=== PATIENT | male | born 1970 | race Two or more races ===

== ENCOUNTER → 2023-05-01 | Outpatient (CLI) | payer MEDICAID ==
[2023-05-01 09:56] LABS: Urine WBC None Seen /hpf (0 - 3)
[2023-05-01 10:06] LABS: Basophils # (auto) 0.1 10 ^3/uL (0-0.2); Eosinophils # (auto) 0.2 10 ^3/uL (0-0.8); Hematocrit 43.1 % (41.0-53.0); Hemoglobin 14.8 g/dL (13.5-17.5); Lymphocytes # (auto) 1.8 10 ^3/uL (0.4-5.4); Lymphocytes % (auto) 33.4 % (10.0-50.0); Mean Corpuscular Hemoglobin 32.3 pg (28.0-32.0); Mean Corpuscular Hgb Conc. 34.4 g/dL (32.0-36.0); Monocytes # (auto) 0.6 10 ^3/uL (0-1.3); Monocytes % (auto) 11.4 % (0.0-12.0); Neutrophils # (auto) 2.8 10 ^3/uL (1.6-8.6); Neutrophils % (auto) 50.2 % (37.0-80.0); Red Blood Cells 4.58 10^6/uL (4.5-5.90); Red Cell Distribution Width 13.2 % (11.8-14.3); White Blood Cell 5.5 10^3/uL (4.4-10.8)
[2023-05-01 10:23] LABS: Urine Bacteria NONE SEEN /hpf (None Seen); Urine Blood Negative /uL (Negative); Urine Clarity Clear (Clear); Urine Color Yellow (Yellow); Urine Protein, UAD Negative (Negative); Urine Specific Gravity 1.019 (1.001-1.035); Urine Urobilinogen Normal (Negative)
[2023-05-01 10:30] LABS: Alanine Aminotransferase 14 U/L (7-40); Albumin 4.4 g/dL (3.2-4.8); Alkaline Phosphatase 119 U/L (46-116); Anion Gap 2 (5-15); Aspartate Aminotransferase 17 U/L (13-40); BUN/Creatinine Ratio 12.2 (10.0-20.0); Blood Urea Nitrogen 9 mg/dL (9-23); Calcium 9.2 mg/dL (8.5-10.1); Carbon Dioxide 31 mmol/L (20-30); Chloride 100 mmol/L (98-107); Glucose 85 mg/dL (74-106); LDL Cholesterol 47 mg/dL (< 100); Potassium 4.4 mmol/L (3.5-5.1); Sodium 133 mmol/L (136-145); Triglycerides 56 mg/dL (< 150)
[2023-05-01 10:31] LABS: Bilirubin, Total 0.5 mg/dL (0.2-1.0); Cholesterol 123 mg/dL (< 200); HDL Cholesterol 67 mg/dL (40-59)
[2023-05-01 10:32] LABS: Total Protein 6.9 g/dL (5.7-8.2)
== END | disposition home or self-care (01) ==
LOC: LAB 09:43
PROVIDERS: ATTEND Nurse Practitioner
DX: I10 Essential (primary) hypertension (principal); R73.9 Hyperglycemia, unspecified; E78.5 Hyperlipidemia, unspecified
CPT/HCPCS: 36415; 80053; 80061; 81001; 83036; 84443; 85025

== ENCOUNTER → 2023-10-20 | Outpatient (CLI) | payer MEDICAID ==
[2023-10-20 09:35] LABS: Creatinine, Urine 218.3 mg/dL (30.0-125.0)
[2023-10-20 09:44] LABS: Alanine Aminotransferase 17 U/L (7-40); Albumin 4.1 g/dL (3.2-4.8); Alkaline Phosphatase 126 U/L (46-116); Anion Gap 6 (5-15); Aspartate Aminotransferase 9 U/L (13-40); BUN/Creatinine Ratio 23.4 (10.0-20.0); Blood Urea Nitrogen 15 mg/dL (9-23); Calcium 9.2 mg/dL (8.7-10.4); Carbon Dioxide 29 mmol/L (20-30); Chloride 104 mmol/L (98-107); Potassium 3.6 mmol/L (3.5-5.1); Sodium 139 mmol/L (136-145)
[2023-10-20 09:45] LABS: Bilirubin, Total 0.4 mg/dL (0.2-1.0); Total Protein 6.3 g/dL (5.7-8.2)
[2023-10-20 09:54] LABS: Glucose 101 mg/dL (74-106)
== END | disposition home or self-care (01) ==
LOC: LAB 08:20
PROVIDERS: ATTEND Nurse Practitioner
DX: E78.5 Hyperlipidemia, unspecified (principal); E11.69 Type 2 diabetes mellitus with other specified complication
CPT/HCPCS: 36415; 80053; 82043; 82570; 83036

== ENCOUNTER 2024-01-18 09:42 | Emergency (ER) | payer MEDICAID ==
[~2024-01-18] VITALS: Ht 165.1 cm; Wt 63.2 kg
[2024-01-18 10:43] VITALS: BP 119/89; PULSE 74; RESP 17; TEMP 98.6; O2SAT 97
== END 2024-01-18 11:26 | disposition home or self-care (01) ==
LOC: ER 09:42
DX: F43.22 Adjustment disorder with anxiety (principal)

== ENCOUNTER → 2024-02-02 | Outpatient (CLI) | payer MEDICAID ==
[2024-02-02 11:31] LABS: Alanine Aminotransferase 13 U/L (7-40); Alkaline Phosphatase 129 U/L (46-116); Anion Gap 3 (5-15); BUN/Creatinine Ratio 13.6 (10.0-20.0); Blood Urea Nitrogen 11 mg/dL (9-23); Calcium 9.4 mg/dL (8.7-10.4); Carbon Dioxide 34 mmol/L (20-31); Chloride 101 mmol/L (98-107); Glucose 85 mg/dL (74-106); LDL Cholesterol 56 mg/dL (< 100); Potassium 3.9 mmol/L (3.5-5.1); Sodium 138 mmol/L (136-145); Triglycerides 66 mg/dL (< 150)
[2024-02-02 11:32] LABS: Albumin 4.3 g/dL (3.2-4.8); Aspartate Aminotransferase 9 U/L (13-40); Bilirubin, Total 0.6 mg/dL (0.2-1.0); Cholesterol 137 mg/dL (< 200); HDL Cholesterol 68 mg/dL (40-59); Total Protein 7.1 g/dL (5.7-8.2)
== END | disposition home or self-care (01) ==
LOC: LAB 10:10
PROVIDERS: ATTEND Nurse Practitioner
DX: E11.9 Type 2 diabetes mellitus without complications (principal); E78.5 Hyperlipidemia, unspecified
CPT/HCPCS: 36415; 80053; 80061; 83036

== ENCOUNTER 2024-02-15 20:01 | Emergency (ER) | payer MEDICAID ==
[~2024-02-15] VITALS: Ht 170.2 cm; Wt 63.6 kg
[2024-02-15] MEDS ORDERED: ACET500T58 PO (22:16)
[2024-02-15] MEDS ORDERED: CEPH500C PO (22:16)
--- NOTE | 2024-02-15 22:18 | ED.PDOC ---
HPI Comments 53-year-old male presents to ER with complaints of laceration to right 5th finger x1 day. Patient is present with his [id number], reporting that he tripped and fell in a bedroom today at approximately 1:00 p.m. and used his right hand to catch himself catch himself falling and states that his right hand made impact with a sharp knife that was hanging on the wall and sustained laceration to right 5th finger at that time. Denies head injury/LOC. He denies any current pain. Reports he is able to fully move all fingers right hand. Denies numbness/tingling or any further symptoms/complaints Chief Complaint: Laceration Time Seen by MD: 20:05 Primary Care Provider: UNKNOWN Reviewed Notes: Nurses Notes, Medications, Allergies Allergies: Coded Allergies: NO KNOWN ALLERGIES (Unverified , 01/18/24) Home Meds Active Scripts Cephalexin Monohydrate (Cephalexin) 500 Mg Cap, 1 CAP PO BID for 7 Days, #14 CAP 0 Refills Prov:VLADIMIR BILLS 02/15/24 Acetaminophen (Acetaminophen) 500 Mg Tab, 500 MG PO Q4HPRN, #30 TAB 0 Refills Prov:VLADIMIR BILLS 02/15/24 Information Source: Patient Mode of Arrival: Ambulatory Complexity: Simple Last Tetanus: UTD Laceration Length (cm): 2 Past Medical History PAST MEDICAL HISTORY: Schizophrenia Past Medical History (Other): MENTAL DELAY BIPOLAR Surgical History: Denies all surgeries Family History Family History: Unknown Social History Smoker: Non-Smoker Alcohol: Denies ETOH Use Drugs: Denies Drug Use Lives In: Home Constitutional: denies: chills, diaphoresis, fatigue, fever, malaise, sweats, weakness, others EENTM: denies: blurred vision, double vision, ear bleeding, ear discharge, ear drainage, ear pain, ear ringing, eye pain, eye redness, hearing loss, mouth pain, mouth swelling, nasal discharge, nose bleeding, nose congestion, nose pain, photophobia, tearing, throat pain, throat swelling, voice changes, others Respiratory: denies: cough, hemoptysis, orthopnea, SOB at rest, shortness of breath, SOB with excertion, stridor, wheezing, others Cardiovascular: denies: chest pain, dizzy spells, diaphoresis, Dyspnea on exertion, edema, irregular heart beat, left arm pain, lightheadedness, palpitations, PND, syncope, others Gastrointestinal: denies: abdomen distended, abdominal pain, blood streaked bowels, constipated, diarrhea, dysphagia, difficulty swallowing, hematemesis, melena, nausea, poor appetite, poor fluid intake, rectal bleeding, rectal pain, vomiting, others Genitourinary: denies: burning, dysuria, flank pain, frequency, hematuria, incontinence, penile discharge, penile sore, pain, testicle pain, testicle swelling, urgency, others Neurological: denies: dizziness, fainting, headache, left sided numbness, left sided weakness, numbness, paresthesia, pre-existing deficit, right sided num bness, right sided weakness, seizure, speech problems, tingling, tremors, weakness, others Musculoskeletal: denies: back pain, gout, joint pain, joint swelling, muscle pain, muscle stiffness, neck pain, others Integumetry: reports: others (As stated in HPI) Allergic/Immunocompromised: denies: Difficulty Healing, Frequent Infections, Hives, Itching, others Hematologic/Lymphatic: denies: anemia, blood clots, easy bleeding, easy bruising, swollen glands, others Endocrine: denies: excessive hunger, excessive sweating, excessive thirst, excessive urination, flushing, intolerance to cold, intolerance to heat, unexplained weight gain, unexplained weight loss, others Psychiatric: denies: anxiety, bipolar disorder, depression, hopeless, panic disorder, schizophrenia, sleepless, suicidal, others Physical Exam General Appearance: No Apparent Distress HEENT: PERRL/EOMI Neck: Full Range of Motion, Non-Tender, Normal Respiratory: Chest Non-Tender, Lungs Clear, No Accessory Muscle Use, No Respiratory Distress, Normal Breath Sounds Cardiovascular: No Murmur, No Gallop, Regular Rate/Rhythm Breast Exam: Deferred Gastrointestinal: NOT DONE Genitalia: Deferred Pelvic: Deferred Rectal: Deferred Extremities: Normal capillary refill, Normal range of motion Neurologic: Alert, No Motor Deficits, Normal Affect, Normal Mood, No Sensory Deficits Cerebellar Function: Normal Reflexes: Normal Skin: Dry, Warm, Other (2 cm laceration with 1 cm partial skin avulsion noted to right 5th finger. Slight TTP/swelling/erythema localized to wound edges. No nailbed injury/further skin changes noted. Patient able to fully move all fingers right hand. Pulses intact) Peripheral Pulses: 2+ Radial (R), 2+ Radial (L), 2+ Brachial (R), 2+ Brachial (L) Lymphatic: No Adenopathy Was a procedure done? Was a procedure done?: Yes Sedation Sedation?: No Laceration Repair : Location Right 5th finger Length 2cm Anesthetic: Lidocaine (1%), Without epi Laceration Repair Prep: Saline (And peroxide), by Irrigation (Without any signs of foreign body) Laceration Repair Wound Comple: epidermis/dermis repair Laceration Repair: Number of sutures (2 placed without complication), Size (5-0), Nylon, Simple, Non-adherent gauze (Finger splint also applied to prevent wound dehiscence) Informed consent obtained: Yes Risks, benefits, and alternati: Yes Differential diagnosis Generic Laceration: Fracture, Retained Foriegn Body, Neurovascular Injury X-Ray, Labs, Meds, VS Vital Signs Date Time Temp Pulse Resp B/P (MAP) Pulse Ox O2 Delivery O2 Flow Rate FiO2 02/15/24 20:32 98.9 94 15 116/79 (91) 98 Patient neurovascularly intact Wound care/cleaning discussed and advised Advised on rest/no strenuous activity and elevation Advised to follow up in two days for wound check Advised to follow up with PCP in 1-2 days Patient and patients brother in law and verbalized understanding and agreeable with current plan of care Advised to return to ER immediately if symptoms worsen Time of 1ST Reevaluation: 21:50 Reevaluation 1ST: N/A Patient Education/Counseling: Diagnosis, Treatment, Prognosis, Need For Follow Up Family Education/Counseling: Diagnosis, Treatment, Prognosis, Need For Follow Up Departure 1 Departure Time of Disposition: 22:12 Impression: Primary Impression: Laceration of finger of right hand Qualified Codes: S61.216A - Laceration without foreign body of right little finger without damage to nail, initial encounter Disposition: HOME / SELF CARE / HOMELESS Condition: Stable e-Prescriptions Cephalexin Monohydrate (Cephalexin) 500 Mg Cap 1 CAP PO BID for 7 Days, #14 CAP 0 Refills Prov: VLADIMIR BILLS 02/15/24 Acetaminophen (Acetaminophen) 500 Mg Tab 500 MG PO Q4HPRN, #30 TAB 0 Refills Prov: VLADIMIR BILLS 02/15/24 Discharged With: Other ([id number]) Critical Care Note Critical Care Time?: No Stability Stability form required: No Heart Score Heart Score: Heart Score Response (Comments) Value History N/A 0 EKG N/A 0 Age N/A 0 Risk Factors N/A 0 Troponin N/A 0 Total 0 VLADIMIR BILLS Feb 15, 2024 22:17
[2024-02-15 22:53] VITALS: BP 120/84; PULSE 90; RESP 18; TEMP 98.9; O2SAT 98
== END 2024-02-15 23:03 | disposition home or self-care (01) ==
LOC: ER 20:01
DX: S61.216A Laceration without foreign body of right little finger without damage to nail, initial encounter (principal); F20.9 Schizophrenia, unspecified; Z79.899 Other long term (current) drug therapy; W01.0XXA Fall on same level from slipping, tripping and stumbling without subsequent striking against object, initial encounter; Y93.89 Activity, other specified; Y92.89 Other specified places as the place of occurrence of the external cause; Y99.8 Other external cause status
CPT/HCPCS: 12001

== ENCOUNTER 2024-07-17 17:52 | Emergency (ER) | payer OTHER, MEDICAID ==
[~2024-07-17] VITALS: Ht 170.2 cm; Wt 65.0 kg
[~2024-07-17 17:52] MED LIST: ACET500T58 PO; CEPH500C PO
[2024-07-17 18:47] LABS: Basophils # (auto) 0.1 10 ^3/uL (0-0.2); Basophils % (auto) 1.9 % (0.0-2.0); Eosinophils # (auto) 0.1 10 ^3/uL (0-0.8); Hematocrit 45.6 % (41.0-53.0); Hemoglobin 15.8 g/dL (13.5-17.5); Lymphocytes # (auto) 1.5 10 ^3/uL (0.4-5.4); Lymphocytes % (auto) 24.7 % (10.0-50.0); Mean Corpuscular Hemoglobin 32.2 pg (28.0-32.0); Mean Corpuscular Hgb Conc. 34.7 g/dL (32.0-36.0); Mean Corpuscular Volume 92.9 fL (80.0-100.0); Monocytes # (auto) 0.8 10 ^3/uL (0-1.3); Monocytes % (auto) 12.1 % (0.0-12.0); Neutrophils # (auto) 3.8 10 ^3/uL (1.6-8.6); Neutrophils % (auto) 60.3 % (37.0-80.0); Nucleated Red Blood Cells % 0.1 %; Platelet Count (auto) 403 10^3/uL (140-450); Red Blood Cells 4.91 10^6/uL (4.5-5.90); Red Cell Distribution Width 12.9 % (11.8-14.3); White Blood Cell 6.2 10^3/uL (4.4-10.8)
--- NOTE | 2024-07-17 18:53 | ED.PDOC ---
History of Present Illness HPI Comments 53 y/o M, with a history of asthma, bipolar disorder, schizophrenia, mental delay, and DM, presents with sister and [id number] for wellness-check. Per sister, who is the patient's primary intelligence specialist, patient has been having frequent, persisting behavioral issues, lately, characterized by physical aggression, such as head-banging, and irregular sleep patterns. Patient's psychiatrist has been contacted multiple times, with patient's medication list changing in attempt to manage behavior for several months to minimal affect and was brought to ED, due to family admitting on not knowing what else to do. Patient, upon inquiry, complains of generalized body pain keeping him up for the past 2 days. Denies any suicidal or homicidal ideation or other associated symptoms along with any recent substance use. Chief Complaint: Body Pain Time Seen by MD: 18:20 Primary Care Provider: UNKNOWN Reviewed Notes: Nurses Notes, Medications, Allergies Allergies: Coded Allergies: NO KNOWN ALLERGIES (Unverified , 01/18/24) Home Meds Active Scripts Cephalexin Monohydrate (Cephalexin) 500 Mg Cap, 1 CAP PO BID for 7 Days, #14 CAP 0 Refills Prov:VLADIMIR BILLS 02/15/24 Acetaminophen (Acetaminophen) 500 Mg Tab, 500 MG PO Q4HPRN, #30 TAB 0 Refills Prov:VLADIMIR BILLS 02/15/24 Information Source: Patient, Relative Mode of Arrival: Ambulatory Severity: Moderate Past Medical History PAST MEDICAL HISTORY: Asthma, DM, Schizophrenia Past Medical History (Other): bipolar disorder mental delay Surgical History: Denies all surgeries Family History Family History: Unknown Social History Smoker: Non-Smoker Alcohol: Denies ETOH Use Drugs: Denies Drug Use Lives In: Home, Assisted Care All Other Systems: Reviewed and Negative (as per HPI) Physical Exam General Appearance: No Apparent Distress, Normal, Other (poor insight; mentally delayed ) HEENT: Normal ENT Inspection, Pharynx Normal, TMs Normal Neck: Full Range of Motion, Non-Tender, Normal, Normal Inspection Respiratory: Chest Non-Tender, Lungs Clear, No Accessory Muscle Use, No Respiratory Distress, Normal Breath Sounds Cardiovascular: No Edema, No JVD, No Murmur, No Gallop, Normal Peripheral Puls es, Regular Rate/Rhythm Breast Exam: Deferred Gastrointestinal: No Organomegaly, Non Tender, No Pulsatile Mass, Normal Bowel Sounds, Soft Genitalia: Deferred Pelvic: Deferred Rectal: Deferred Extremities: No calf tenderness, Normal capillary refill, Normal inspection, Normal range of motion, Non-tender, No pedal edema Musculoskeletal : Apperance: Normal Neurologic: Alert, cordage sales representative II-XII nml as Tested, No Motor Deficits, Normal Affect, Normal Mood, No Sensory Deficits Cerebellar Function: Normal Reflexes: Normal Skin: Dry, Normal Color, Warm Lymphatic: No Adenopathy Was a procedure done? Was a procedure done?: No Differential Dx Considerations may include: schizoaffective disorder, bipolar disorder, depression, anxiety, among others X-Ray, Labs, Meds, VS Vital Signs Date Time Temp Pulse Resp B/P (MAP) Pulse Ox O2 Delivery O2 Flow Rate FiO2 07/17/24 18:09 98.1 114 16 120/80 (93) 96 98.1 Lab Test 07/17/24 18:42 07/17/24 18:35 Range/Units Urine Opiates Screen Neg NEGATIVE Urine Fentanyl Screen Neg NEGATIVE Urine Barbiturates Screen Neg NEGATIVE Urine Phencyclidine Screen Neg NEGATIVE Urine Amphetamines Screen Neg NEGATIVE Urine Benzodiazepines Screen Neg NEGATIVE Urine Cocaine Screen Neg NEGATIVE Urine Cannabinoids Screen Neg NEGATIVE White Blood Count 6.2 4.4-10.8 10^3/uL Red Blood Count 4.91 4.5-5.90 10^6/uL Hemoglobin 15.8 13.5-17.5 g/dL Hematocrit 45.6 41.0-53.0 % Mean Corpuscular Volume 92.9 80.0-100.0 fL Mean Corpuscular Hemoglobin 32.2 H 28.0-32.0 pg Mean Corpuscular Hemoglobin Concent 34.7 32.0-36.0 g/dL Red Cell Distribution Width 12.9 11.8-14.3 % Platelet Count 403 140-450 10^3/uL Mean Platelet Volume 6.5 L 6.9-10.8 fL Neutrophils (%) (Auto) 60.3 37.0-80.0 % Lymphocytes (%) (Auto) 24.7 10.0-50.0 % Monocytes (%) (Auto) 12.1 H 0.0-12.0 % Eosinophils (%) (Auto) 1.0 0.0-7.0 % Basophils (%) (Auto) 1.9 0.0-2.0 % Neutrophils # (Auto) 3.8 1.6-8.6 10 ^3/uL Lymphocytes # (Auto) 1.5 0.4-5.4 10 ^3/uL Monocytes # (Auto) 0.8 0-1.3 10 ^3/uL Eosinophils # (Auto) 0.1 0-0.8 10 ^3/uL Basophils # (Auto) 0.1 0-0.2 10 ^3/uL Nucleated Red Blood Cells 0.1 % Sodium Level 137 136-145 mmol/L Potassium Level 3.8 3.5-5.1 mmol/L Chloride Level 101 98-107 mmol/L Carbon Dioxide Level 27 20-31 mmol/L Anion Gap 9 5-15 Blood Urea Nitrogen 13 9-23 mg/dL Creatinine 0.78 0.700-1.30 mg/dL Glomerular Filtration Rate Calc 107 >90 mL/min BUN/Creatinine Ratio 16.7 10.0-20.0 Serum Glucose 245 H 74-106 mg/dL Calcium Level 9.6 8.7-10.4 mg/dL Total Bilirubin 0.4 0.2-1.0 mg/dL Aspartate Amino Transferase (AST) 29 13-40 U/L Alanine Aminotransferase (ALT) 26 7-40 U/L Alkaline Phosphatase 174 H 46-116 U/L Total Protein 7.4 5.7-8.2 g/dL Albumin 4.6 3.2-4.8 g/dL Salicylates Level < 3.0 -30 mg/dL Acetaminophen Level < 2.0 L 10.0-20.0 UG/ML Plasma/Serum Blood Alcohol < 3.0 <10 mg/dL Time of 1ST Reevaluation: 18:50 Reevaluation 1ST: Unchanged Time of 2ND Reevaluation: 19:21 Reevaluation 2ND: Unchanged Consultation: Psychiatry (LAB RESULTS REVIEWED, HYPERGLYCEMIA 245 NOTED, PATIENT IS MEDICALLY CLEARED AT THIS TIME) Patient Education/Counseling: Diagnosis, Treatment, Other (patient is mentally delayed ) Family Education/Counseling: Diagnosis, Treatment Departure 1 Departure Time of Disposition: 22:23 Impression: Primary Impression: Adjustment disorder Additional Impressions: Type 2 diabetes mellitus with hyperglycemia Insomnia Disposition: PSYCHIATRIC HOSPITAL Condition: Stable Comments Psychiatry evaluated the patient and recommends transfer for inpatient psychiatric care. Critical Care Note Critical Care Time?: No Stability Stability form required: No Heart Score Heart Score: Heart Score Response (Comments) Value History N/A 0 EKG N/A 0 Age N/A 0 Risk Factors N/A 0 Troponin N/A 0 Total 0 I personally scribed for AMY YO MD ([email or web address]) on 07/17/24 at 18:53. Electronically submitted by Waqas Garza [email or web address]). AMY YO MD Jul 17, 2024 18:53
[2024-07-17 19:03] LABS: Amphetamine Screen, Urine Neg (NEGATIVE); Barbiturate Scree,Urine Neg (NEGATIVE); Benzodiazephine Screen, Urine Neg (NEGATIVE); Cannabinoid Screen, Urine Neg (NEGATIVE); Cocaine Screen, Urine Neg (NEGATIVE); Opiate Scree,Urine Neg (NEGATIVE); Phencyclidine Screen, Urine Neg (NEGATIVE)
[2024-07-17 19:05] LABS: Alanine Aminotransferase 26 U/L (7-40); Albumin 4.6 g/dL (3.2-4.8); Anion Gap 9 (5-15); Aspartate Aminotransferase 29 U/L (13-40); BUN/Creatinine Ratio 16.7 (10.0-20.0); Blood Urea Nitrogen 13 mg/dL (9-23); Calcium 9.6 mg/dL (8.7-10.4); Carbon Dioxide 27 mmol/L (20-31); Chloride 101 mmol/L (98-107); Potassium 3.8 mmol/L (3.5-5.1); Sodium 137 mmol/L (136-145); Total Protein 7.4 g/dL (5.7-8.2)
[2024-07-17 19:06] LABS: Bilirubin, Total 0.4 mg/dL (0.2-1.0)
[2024-07-17 19:09] LABS: Acetaminophen < 2.0 UG/ML (10.0-20.0); Alkaline Phosphatase 174 U/L (46-116); Blood Alcohol < 3.0 mg/dL (<10); Glucose 245 mg/dL (74-106); Salicylate < 3.0 mg/dL (-30)
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
[2024-07-17] MEDS: diphenhdrAMINE HCL 50 MG/1 ML VL IM ONE (23:12)
[2024-07-17] MEDS: HALOPERIDOL LACTATE 5 MG/ML INJ VIAL IM ONE (23:12)
[2024-07-17] MEDS: LORazepam 2MG/ML-1ML VIAL IM ONE (23:13)
[2024-07-18 00:38] VITALS: PULSE 86; RESP 18; O2SAT 97
[2024-07-18] MEDS: OLANZapine 5 MG TAB PO ONE (03:10)
[2024-07-18] MEDS: traZODone HCL 50 MG TAB PO ONE (03:10)
[2024-07-18] MEDS: diphenhdrAMINE HCL 50 MG/1 ML VL IM ONE ×2 (08:25→17:25)
[2024-07-18] MEDS: HALOPERIDOL LACTATE 5 MG/ML INJ VIAL IM ONE ×2 (08:25→17:25)
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
[2024-07-18] MEDS: LORazepam 2MG/ML-1ML VIAL IV ONE ×2 (12:30→18:30)
[2024-07-18] MEDS: LORazepam 0.5 MG TAB PO PRN (16:50)
[2024-07-18] MEDS: ACETAMINOPHEN 325 MG TAB PO ONE (16:56)
[2024-07-18] MEDS: LORazepam 0.5 MG TAB ONE (16:56)
[2024-07-18] MEDS: LORazepam 2MG/ML-1ML VIAL IM ONE (17:24)
[2024-07-18 23:40] VITALS: RESP 18
[2024-07-19] MEDS: OLANZapine 5 MG TAB PO SCH (00:36)
[2024-07-19] MEDS: MIDAZOLAM HCL 5 MG/ML-1ML VIAL IM ONE (00:46)
[2024-07-19] MEDS: HALOPERIDOL LACTATE 5 MG/ML INJ VIAL IM ONE (02:58)
[2024-07-19] MEDS: MORPHINE SULFATE 4 MG/ML SYR/VIAL IM ONE (05:26)
[2024-07-19 15:15] VITALS: BP 148/83; PULSE 100; RESP 18; TEMP 97.8; O2SAT 98
[2024-07-19] MEDS: InsuLIN REG 1unit/0.01ml Soln (100units/ml) ONE (15:47)
[2024-07-19] MEDS: InsuLIN REG 1unit/0.01ml Soln (100units/ml) SC ONE (15:48)
== END 2024-07-19 15:46 | disposition short-term general hospital (02) ==
LOC: ER 17:55
DX: F43.20 Adjustment disorder, unspecified (principal); E11.65 Type 2 diabetes mellitus with hyperglycemia; G47.00 Insomnia, unspecified; F20.9 Schizophrenia, unspecified; F31.9 Bipolar disorder, unspecified; F63.9 Impulse disorder, unspecified; J45.909 Unspecified asthma, uncomplicated
CPT/HCPCS: 36415; 80053; 80307; 80320; 80329; 82947; 85025; 96372; 99285; J1200; J1630; J1815; J2060; J2250; J2270; 82962

== ENCOUNTER 2024-07-26 01:42 | Emergency (ER) | payer OTHER, MEDICAID ==
[~2024-07-26] VITALS: Ht 167.6 cm; Wt 72.7 kg
--- NOTE | 2024-07-26 02:14 | ED.PDOC ---
History of Present Illness HPI Comments 53-year-old male BIBA for being a danger to others and in 4-point restraints. EMS states that family called for patient getting violent at home. Patient was just seen at this facility on 07/17-07/19/24 and discharged from [facility] yesterday. Patient was on 5150 hold due to being DTO. Patient on arrival to ED is denying SI/HI, but says "I wasn't ready to go home and that's why I got like that with my family". PMHx Bipolar, Schizoaffective, DM. Chief Complaint: Mental Health Time Seen by MD: 02:07 Primary Care Provider: UNKNOWN Reviewed Notes: Medications, Allergies Allergies: Coded Allergies: NO KNOWN ALLERGIES (Unverified , 01/18/24) Home Meds Active Scripts Cephalexin Monohydrate (Cephalexin) 500 Mg Cap, 1 CAP PO BID for 7 Days, #14 CAP 0 Refills Prov:VLADIMIR BILLS 02/15/24 Acetaminophen (Acetaminophen) 500 Mg Tab, 500 MG PO Q4HPRN, #30 TAB 0 Refills Prov:VLADIMIR BILLS 02/15/24 Information Source: Patient, Emergency Med Personnel Mode of Arrival: EMS Severity: Moderate Timing: Hours Duration: Since onset Prehospital treatment: [employer], Restraints Vital Signs Vital Signs Date Time Temp Pulse Resp B/P (MAP) Pulse Ox O2 Delivery O2 Flow Rate FiO2 07/26/24 08:00 97.5 94 15 112/78 (89) 98 97.5 07/26/24 03:41 Room Air* 0 21 Physical Exam General: Awake, alert and oriented. No acute distress. Skin: Skin in warm, dry and intact without rashes or lesions. HEENT: The head is normocephalic and atraumatic. Conjunctivae are clear without exudates or hemorrhage. Sclera is non-icteric. Neck: Normal range of motion. No JVD. Cardiac: Regular rate Respiratory: No signs of respiratory distress. No Stridor. Extremities: Upper and lower extremities are atraumatic in appearance without deformity. Neurological: The patient is awake, alert and oriented to person, place, and time with normal speech. Speech is clear. There is no facial asymmetry. Psychiatric: Patient appears irritable, making rude statement to [facility]era staff and passersby, threatening violence to staff Review of Systems: As stated in HPI Past Medical History PAST MEDICAL HISTORY: Asthma, DM, Schizophrenia Surgical History: Denies all surgeries Family History Family History: Unknown Social History Smoker: Non-Smoker Alcohol: Denies ETOH Use Drugs: Denies Drug Use Lives In: Home, Assisted Care Was a procedure done? Was a procedure done?: No Differential Dx Considerations may include: Substance intoxication, substance abuse, psychiatric disorder, homicidal ideation, suicidal ideation, other X-Ray, Labs, Meds, VS Vital Signs Date Time Temp Pulse Resp B/P (MAP) Pulse Ox O2 Delivery O2 Flow Rate FiO2 07/26/24 08:00 97.5 94 15 112/78 (89) 98 97.5 07/26/24 05:57 97.8 82 17 141/80 (100) 98 97.8 07/26/24 03:41 18 Room Air* 0 21 07/26/24 01:48 98.4 99 20 121/83 (96) 97 98.4 Lab Test 07/26/24 05:53 07/26/24 02:18 Range/Units Hepatitis A IgM Antibody Pending Hepatitis B Surface Antigen Pending Hepatitis B Core IgM Antibody Pending Hepatitis C Antibody Pending White Blood Count 9.9 4.4-10.8 10^3/uL Red Blood Count 4.33 L 4.5-5.90 10^6/uL Hemoglobin 14.1 13.5-17.5 g/dL Hematocrit 41.4 41.0-53.0 % Mean Corpuscular Volume 95.7 80.0-100.0 fL Mean Corpuscular Hemoglobin 32.6 H 28.0-32.0 pg Mean Corpuscular Hemoglobin Concent 34.1 32.0-36.0 g/dL Red Cell Distribution Width 12.4 11.8-14.3 % Platelet Count 360 140-450 10^3/uL Mean Platelet Volume 6.4 L 6.9-10.8 fL Neutrophils (%) (Auto) 78.6 37.0-80.0 % Lymphocytes (%) (Auto) 9.2 L 10.0-50.0 % Monocytes (%) (Auto) 11.5 0.0-12.0 % Eosinophils (%) (Auto) 0.2 0.0-7.0 % Basophils (%) (Auto) 0.5 0.0-2.0 % Neutrophils # (Auto) 7.8 1.6-8.6 10 ^3/uL Lymphocytes # (Auto) 0.9 0.4-5.4 10 ^3/uL Monocytes # (Auto) 1.1 0-1.3 10 ^3/uL Eosinophils # (Auto) 0 0-0.8 10 ^3/uL Basophils # (Auto) 0 0-0.2 10 ^3/uL Nucleated Red Blood Cells 0.0 % Sodium Level 137 136-145 mmol/L Potassium Level 4.2 3.5-5.1 mmol/L Chloride Level 102 98-107 mmol/L Carbon Dioxide Level 27 20-31 mmol/L Anion Gap 8 5-15 Blood Urea Nitrogen 6 L 9-23 mg/dL Creatinine 0.68 L 0.700-1.30 mg/dL Glomerular Filtration Rate Calc 111 >90 mL/min BUN/Creatinine Ratio 8.8 L 10.0-20.0 Serum Glucose 190 H 74-106 mg/dL Calcium Level 9.6 8.7-10.4 mg/dL Total Bilirubin 0.4 0.2-1.0 mg/dL Aspartate Amino Transferase (AST) 53 H 13-40 U/L Alanine Aminotransferase (ALT) 49 H 7-40 U/L Alkaline Phosphatase 136 H 46-116 U/L Total Protein 6.6 5.7-8.2 g/dL Albumin 4.0 3.2-4.8 g/dL Plasma/Serum Blood Alcohol < 3.0 <10 mg/dL Current Medications Medications (Trade) Dose Ordered Sig/Vinny Route Start Time Stop Time Status Last Admin Lorazepam (Ativan Inj) 2 mg ONCE ONCE IM 07/26/24 02:00 07/26/24 02:01 DC 07/26/24 03:36 Time of 1ST Reevaluation: 02:37 Reevaluation 1ST: Unchanged Patient Education/Counseling: Need For Follow Up Family Education/Counseling: No Family Present Departure 1 Departure Time of Disposition: 15:30 Impression: Primary Impression: At risk for danger to others Additional Impressions: Elevated LFTs Bipolar disorder Disposition: 02 SHORT TERM HOSPITAL Condition: Stable Comments Discussed with Dr. Hamm psychiatry (@5:49). Recommendation is continue 5150 , inpatient admission to Behavioral Health unit. Continue home medication Patient was transferred to [facility] @ 1530 on 07/26/24 Critical Care Note Critical Care Time?: No Stability Stability form required: No Heart Score Heart Score: Heart Score Response (Comments) Value History N/A 0 EKG N/A 0 Age N/A 0 Risk Factors N/A 0 Troponin N/A 0 Total 0 I personally scribed for MIKIE MEADOWS MD ([email or web address]) on 07/26/24 at 02:14. Electronically submitted by Maurice Mcgowan ([email or web address]). MIKIE MEADOWS MD July 26, 2024 02:14
[2024-07-26 02:23] LABS: Basophils # (auto) 0 10 ^3/uL (0-0.2); Basophils % (auto) 0.5 % (0.0-2.0); Eosinophils # (auto) 0 10 ^3/uL (0-0.8); Eosinophils % (auto) 0.2 % (0.0-7.0); Hematocrit 41.4 % (41.0-53.0); Hemoglobin 14.1 g/dL (13.5-17.5); Lymphocytes # (auto) 0.9 10 ^3/uL (0.4-5.4); Lymphocytes % (auto) 9.2 % (10.0-50.0); Mean Corpuscular Hemoglobin 32.6 pg (28.0-32.0); Mean Corpuscular Hgb Conc. 34.1 g/dL (32.0-36.0); Mean Corpuscular Volume 95.7 fL (80.0-100.0); Monocytes # (auto) 1.1 10 ^3/uL (0-1.3); Monocytes % (auto) 11.5 % (0.0-12.0); Neutrophils # (auto) 7.8 10 ^3/uL (1.6-8.6); Neutrophils % (auto) 78.6 % (37.0-80.0); Platelet Count (auto) 360 10^3/uL (140-450); Red Blood Cells 4.33 10^6/uL (4.5-5.90); Red Cell Distribution Width 12.4 % (11.8-14.3); White Blood Cell 9.9 10^3/uL (4.4-10.8)
[2024-07-26 02:50] LABS: Anion Gap 8 (5-15); BUN/Creatinine Ratio 8.8 (10.0-20.0); Bilirubin, Total 0.4 mg/dL (0.2-1.0); Calcium 9.6 mg/dL (8.7-10.4); Carbon Dioxide 27 mmol/L (20-31); Chloride 102 mmol/L (98-107); Potassium 4.2 mmol/L (3.5-5.1); Sodium 137 mmol/L (136-145); Total Protein 6.6 g/dL (5.7-8.2)
[2024-07-26 03:23] LABS: Alanine Aminotransferase 49 U/L (7-40); Alkaline Phosphatase 136 U/L (46-116); Aspartate Aminotransferase 53 U/L (13-40); Blood Alcohol < 3.0 mg/dL (<10); Blood Urea Nitrogen 6 mg/dL (9-23); Glucose 190 mg/dL (74-106)
[2024-07-26] MEDS: LORazepam 2MG/ML-1ML VIAL IM ONE (03:36)
[2024-07-26 03:41] VITALS: RESP 18
--- NOTE | 2024-07-26 05:54 | DVHINCON2 ---
Date of Service if different f: July 26, 2024 Time of Service: 05:24 Consultation ([facility]) Consulting Physician: AZALEA DE JESUS MD Labs Laboratory Tests Test 07/26/24 02:18 White Blood Count 9.9 10^3/uL (4.4-10.8) Red Blood Count 4.33 10^6/uL (4.5-5.90) Hemoglobin 14.1 g/dL (13.5-17.5) Hematocrit 41.4 % (41.0-53.0) Mean Corpuscular Volume 95.7 fL (80.0-100.0) Mean Corpuscular Hemoglobin 32.6 pg (28.0-32.0) Mean Corpuscular Hemoglobin Concent 34.1 g/dL (32.0-36.0) Red Cell Distribution Width 12.4 % (11.8-14.3) Platelet Count 360 10^3/uL (140-450) Mean Platelet Volume 6.4 fL (6.9-10.8) Neutrophils (%) (Auto) 78.6 % (37.0-80.0) Lymphocytes (%) (Auto) 9.2 % (10.0-50.0) Monocytes (%) (Auto) 11.5 % (0.0-12.0) Eosinophils (%) (Auto) 0.2 % (0.0-7.0) Basophils (%) (Auto) 0.5 % (0.0-2.0) Neutrophils # (Auto) 7.8 10 ^3/uL (1.6-8.6) Lymphocytes # (Auto) 0.9 10 ^3/uL (0.4-5.4) Monocytes # (Auto) 1.1 10 ^3/uL (0-1.3) Eosinophils # (Auto) 0 10 ^3/uL (0-0.8) Basophils # (Auto) 0 10 ^3/uL (0-0.2) Nucleated Red Blood Cells 0.0 % Sodium Level 137 mmol/L (136-145) Potassium Level 4.2 mmol/L (3.5-5.1) Chloride Level 102 mmol/L (98-107) Carbon Dioxide Level 27 mmol/L (20-31) Anion Gap 8 (5-15) Blood Urea Nitrogen 6 mg/dL (9-23) Creatinine 0.68 mg/dL (0.700-1.30) Glomerular Filtration Rate Calc 111 mL/min (>90) BUN/Creatinine Ratio 8.8 (10.0-20.0) Serum Glucose 190 mg/dL (74-106) Calcium Level 9.6 mg/dL (8.7-10.4) Total Bilirubin 0.4 mg/dL (0.2-1.0) Aspartate Amino Transf (AST/SGOT) 53 U/L (13-40) Alanine Aminotransferase (ALT/SGPT) 49 U/L (7-40) Alkaline Phosphatase 136 U/L (46-116) Total Protein 6.6 g/dL (5.7-8.2) Albumin 4.0 g/dL (3.2-4.8) Plasma/Serum Blood Alcohol < 3.0 mg/dL (<10) Psychomotor activity: Agitated Behavioral: Cooperative Eye contact: Appropriate Speech: WNL Affect: Mood Congruent Mood: Irritable, Angry Thought processes: Linear/Goal-directed Thought content: WNL Suicidal ideations: Absent Homicidal ideations: Absent Orientation: Person, Place, Time Memory intact: Recent Intellect: Below average Abstractability: WNL Concentration: Adequate Attention: Adequate Judgement: Poor Insight: Poor Vitals Vital Signs Date Time Temp Pulse Resp B/P (MAP) Pulse Ox O2 Delivery O2 Flow Rate FiO2 07/26/24 01:48 98.4 99 20 121/83 (96) 97 98.4 Treatment plan discussed: With staff Medication adjusted: No Labs ordered: No Psychotherapy provided: No Type: 72 hour hold History of Present Illness Reason for Consult : psychiatric evaluation PER ED PHYSICIAN: 53-year-old male BIBA for being a danger to others and in 4- point restraints. EMS states that family called for patient getting violent at home. Patient was just seen at this facility on 07/17-07/19/24 and discharged from [facility] yesterday. Patient was on 5150 hold due to being DTO. Patient on arrival to ED is denying SI/HI, but says "I wasn't ready to go home and that's why I got like that with my family". PMHx Bipolar, Schizoaffective, DM. PSYCHIATRIST HPI: The patient was seen and evaluated at [facility] ED via telepsychiatry platform. 53 yr old male reported that he got violent at home. He stated that he felt like he couldn't control himself and struck out at his family members. . He denied having homicidal ideation and visual hallucinations. Past Psychiatric History : "a few" hospitalizations, Last hospitalized end of June [address] [facility]. No past suicide attempt. Diagnosed with schizoaffective disorder, bipolar type. Past Medical History: diabetes Current Medications: he is unsure of what medications he takes. NKDA Substance use: Denied alcohol and other substance use. Social History : Lives in [place] with father, sister and [id number]. Never , no children, unemployed, some support system noted (immediate family) Diagnosis: SCHIZOAFFECTIVE DISORDER, BIPOLAR TYPE; INTELLECTUAL DISABILITY Formulation: This 53 yr old male appears to suffer from schizoaffective disorder and is very impulsive and aggressive and is a moderate risk for harm to others. He may benefit from admission to [facility] and starting on his medications He meets criteria for involuntary hold on basis of danger to others. Plan: 1. Transfer to behavioral health unit for observation stabilization and treatment. 2. Legal-involuntary 5150 hold for danger to others. 3. Medication: recommend contacting his family to determine his outpatient medications and restart his outpatient medications. 4. Contact psychiatry if further follow up or reevaluation is desired. 5. Case discussed with ED Physician, Dr Ruiz. Assessment/Diagnosis/Plan Reviewed: Labs, Medications, Previous Orders AZALEA DE JESUS MD July 26, 2024 04:53
--- NOTE | 2024-07-26 07:23 | DVH ---
EXAM: US Abdomen Limited, Right Upper Quadrant CLINICAL INDICATION: Right upper quadrant-elevated LFTs TECHNIQUE: Real-time ultrasound of the right upper quadrant with image documentation. COMPARISON: None FINDINGS: LIVER: Liver measures up to 16.6 cm. No intrahepatic bile duct dilation. GALLBLADDER: Negative Estrada's sign was reported by the border measurer. No gallstones. COMMON BILE DUCT: CBD not visualized. PANCREAS: Unremarkable as visualized. RIGHT KIDNEY: Right kidney measures up to 9.5 cm. No stones. No hydronephrosis. OTHER FINDINGS: . . IMPRESSION: No acute findings in the right upper quadrant.
[2024-07-26 08:00] VITALS: BP 112/78; PULSE 94; RESP 15; TEMP 97.5; O2SAT 98
[2024-07-27 11:15] LABS: Hepatitis A Ab IgM Negative; Hepatitis B Core IgM Negative (Negative); Hepatitis B Surface Antigen Negative (Negative); Hepatitis C Antibody Negative (Negative)
== END 2024-07-26 15:25 | disposition short-term general hospital (02) ==
LOC: ER 01:42 → EDBD 01:42 → ER 15:25
DX: F31.89 Other bipolar disorder (principal); R79.89 Other specified abnormal findings of blood chemistry; F79 Unspecified intellectual disabilities; E11.9 Type 2 diabetes mellitus without complications; J45.909 Unspecified asthma, uncomplicated; F25.0 Schizoaffective disorder, bipolar type
CPT/HCPCS: 36415; 76705; 80053; 80074; 80320; 85025; 96372; 99285; J2060; 90471